=== PATIENT | female | born 1955 | race Caucasian/White ===

== ENCOUNTER 2023-12-07 10:38 | Day surgery (SDC) | payer MEDICARE ==
[2023-12-06 08:48] VITALS: BMI 32.8
[~2023-12-07 10:38] MED LIST: DEXAMETHASONE SOD PHOSPHATE 4 MG/ML 1 ML VIAL IV ONE; HYDROmorphone 0.5 MG/0.5 ML SYRINGE IVP PRN; LIDOCAINE 1% (10MG/ML) FOR IV START INTRADERMA PRN; MIDAZOLAM 2 MG/2 ML VIAL IV PRN
[2023-12-07] MEDS: IV FLUID CONTINUATION 1,000 ML IV ONE (11:01)
[2023-12-07 11:11] VITALS: TEMP 97.3
[2023-12-07] MEDS: ONDANSETRON 4 MG/2 ML VIAL IVP ONE (11:17)
[2023-12-07] MEDS: FAMOTIDINE 20 MG/2 ML VIAL IV PRN (11:17)
[2023-12-07] MEDS: LACTATED RINGERS 1,000 ML IV SCH (11:18)
[2023-12-07] MEDS ORDERED: fentaNYL (PF) 50 MCG/ML 2 ML AMP ONE (12:03)
[2023-12-07] MEDS ORDERED: KETAMINE HCL IN 0.9 % NACL 50 MG/5 ML SYRINGE ONE (12:03)
[2023-12-07] MEDS ORDERED: MIDAZOLAM 2 MG/2 ML VIAL ONE (12:03)
[2023-12-07] MEDS: LIDOCAINE 1%-EPI 1:100,000 20 ML VIAL SQ ONE (12:23)
--- NOTE | 2023-12-07 12:46 | P.OP ---
Date of Procedure: 12/07/23 Preoperative Diagnosis: left temporal skin lesion Postoperative Diagnosis: same Procedure(s) Performed: excision left muslim skin lesion 2.6 cm Local flap reconstruction of left muslim defect with primary defect 2.6 x 1.2 cm and secondary defect2.4 x 1.2 cm Anesthesia: MAC Surgeon: Jeffery Garcia Estimated Blood Loss (ml): 1 Pathology: other (left muslim skin lesion) Condition: stable Disposition: PACU Indications for Procedure: this 68-year-old white female with a left muslim skin lesion. She had proposed excision of this lesion as well as a mid forehead lesion in the office however local anesthesia did not seem to work well for her for the other lesion on the forehead and therefore it was elected to proceed under sedation to excise the left muslim lesion Operative Findings: nodular raised pearly pink skin lesion left temporal Description of Procedure: Patient was brought in the operative suite and positioned supine position. Patient underwent induction of IV sedation after appropriate monitors were placed by the sulfur chloride operator. The medications were administered by sulfur chloride operator also. The patient was then prepped and draped in usual aseptic fashion. 1% lidocaine was infused subcutaneously and field block fashion. The lesion was excised from the surrounding tissue grossly entirely down to the muscular layer the edges of the wound were undermined and hemostasis gained with electrocautery. Due to the location and size of the defect this required a local flap which was a local rotation rhomboid type flap to close the defect. The flap was based laterally and was raised and rotated and advanced into posi tion to close the defect. The primary defect secondary defects were then closed with inverted interrupted 5-0 Vicryl suture in the subcutaneous layer and skin closed with simple interrupted and running locking 5-0 Prolene suture. Bacitracin ointment sterile dressings were placed. The patient was then allowed to emerge from anesthesia having tolerated procedure well was transferred to postop recovery area in satisfactory condition.
[2023-12-07 13:28] VITALS: BP 107/60; PULSE 56; RESP 17
== END 2023-12-07 13:28 | disposition home or self-care (01) ==
LOC: OR 10:38
PROVIDERS: ATTEND Otolaryngology
DX: C44.319 Basal cell carcinoma of skin of other parts of face (principal); L82.1 Other seborrheic keratosis; J45.20 Mild intermittent asthma, uncomplicated; K21.9 Gastro-esophageal reflux disease without esophagitis; E66.9 Obesity, unspecified; Z68.30 Body mass index [BMI] 30.0-30.9, adult; Z80.8 Family history of malignant neoplasm of other organs or systems; Z88.8 Allergy status to other drugs, medicaments and biological substances; Z91.09 Other allergy status, other than to drugs and biological substances; Z87.891 Personal history of nicotine dependence; Z79.51 Long term (current) use of inhaled steroids; Z79.899 Other long term (current) drug therapy
CPT/HCPCS: 88305; 14040; J2250; J0690; J2405; J3010; J3490

== ENCOUNTER 2023-12-13 13:36 | Emergency (ER) | payer MEDICARE ==
[2023-12-13 13:40] VITALS: BP 114/79; PULSE 94; RESP 16; TEMP 97.9
--- NOTE | 2023-12-13 14:53 | ED ---
General Adult HPI - General Chief complaint: ENT Stated complaint: Swelling forehead-Post Surgery Time Seen by Provider: 12/13/23 14:07 Source: patient, RN notes reviewed Mode of arrival: ambulatory Limitations: no limitations - History of Present Illness Initial comments: Patient is a 68-year-old female present to the emergency department with concerns for swelling. Patient did have area of basal cell cancer of her left forehead removed on the skin for 5 days ago. Patient did notice some swelling yesterday, more today. Patient did have some mild discomfort earlier however that has resolved. No redness. No fevers. Patient feels the area itself where the removal was looks fine. Patient states the swelling has bolus, more of the left eyelid - Related Data Home Medications Medication Instructions Recorded Confirmed Acetaminophen Tab [Tylenol Tab] 1,000 mg PO Q6HR PRN 12/06/23 12/07/23 [place] Carbonate 300 mg PO BID 12/06/23 12/07/23 Sertraline [Zoloft] 25 mg PO HS 12/06/23 12/07/23 Allergies Allergy/AdvReac Type Severity Reaction Status Date / Time epinephrine Allergy Severe Verified 12/07/23 11:09 shaking Review of Systems ROS Statement: Those systems with pertinent positive or pertinent negative responses have been documented in the HPI. ROS Other: All systems not noted in ROS Statement are negative. Constitutional: Denies: fever Eyes: Reports: as per HPI. Denies: eye pain ENT: Denies: ear pain Respiratory: Denies: cough, dyspnea Cardiovascular: Denies: chest pain Past Medical History Past Medical History: Asthma, Cancer, GERD/Reflux, Hearing Disorder / Deafness Additional Past Medical History / Comment(s): No recent issues with Asthma. Hx skin cancer on forehead and hand. Some trouble hearing. Legs are bothersome, has difficulty with mobility/walking. 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 Occasional dizziness. History of Any Multi-Drug Resistant Organisms: None Reported Additional Past Surgical History / Comment(s): Skin cancer removed from forehead, scalp cyst removed, mole on face removed. Past Anesthesia/Blood Transfusion Reactions: Previous Problems w/ Anesthesia, Motion Sickness Additional Past Anesthesia/Blood Transfusion Reaction / Comment(s): States Dr Garcia did procedure in his office and he gave her 4X the normal amount of local anesthesia and she was still not totally numbed up. Past Psychological History: Anxiety Smoking Status: Former smoker - Past Family History Sister(s) Family Medical History: Cancer Additional Family Medical History / Comment(s): Melanoma. Father Family Medical History: Cancer Additional Family Medical History / Comment(s): Skin cancer, cancer of cecum. General Exam Limitations: no limitations General appearance: alert, in no apparent distress Head exam: Present: other (Left forehead incision clean dry and intact) Eye exam: Present: normal appearance, PERRL, EOMI, other (Mild swelling part of left upper and lower eyelid without tenderness or erythema) ENT exam: Present: normal exam Neck exam: Present: normal inspection Respiratory exam: Present: normal lung sounds bilaterally Cardiovascular Exam: Present: regular rate, normal rhythm Extremities exam: Present: normal inspection Neurological exam: Present: alert, CN II-XII intact Psychiatric exam: Present: normal affect, normal mood Skin exam: Present: normal color, other (No ecchymosis left eyelid region). Absent: erythema Course Vital Signs 12/13/23 13:36 Temperature 97.9 F Pulse Rate 94 Respiratory 16 Rate Blood Pressure 114/79 O2 Sat by Pulse 99 Oximetry Medical Decision Making - Medical Decision Making Was pt. sent in by a medical professional or institution (, PA, ENVIRONMENTAL SERVICES MANAGER, urgent care, hospital, or snf...) When possible be specific @ -No Did you speak to anyone other than the patient for history (EMS, parent, family, police, friend...)? What history was obtained from this source @ -No Did you review nursing and triage notes (agree or disagree)? Why? @ -I reviewed and agree with nursing and triage notes Were old charts reviewed (outside hosp., previous admission, EMS record, old EKG, old radiological studies, urgent care reports/EKG's, snf records)? Report findings @ -No old charts were reviewed Differential Diagnosis (chest pain, altered mental status, abdominal pain women, abdominal pain men, vaginal bleeding, weakness, fever, dyspnea, syncope, headache, dizziness, GI bleed, back pain, seizure, CVA, palpatations, mental health, musculoskeletal)? @ -Differential Fever: Pneumonia, viral URI, endocarditis, myocarditis, pericarditis, otitis, sinusitis, peritonsillar Abscess, retropharyngeal Abscess, epiglottitis, peritonitis, appendicitis, Claire cystitis, diverticulitis, hepatitis, colitis, UTI, PID, TOA, pyelonephritis, prostatitis, epididymitis, meningitis, encephalitis, pulmonary embolism, CVA, thyroid storm, pancreatitis, adrenal crisis, cavernous sinus thrombosis, this is not meant to be an all-inclusive list. EKG interpreted by me (3pts min.). @ -As above X-rays interpreted by me (1pt min.). @ -None done CT interpreted by me (1pt min.). @ -None done U/S interpreted by me (1pt. min.). @ -None done What testing was considered but not performed or refused? (CT, X-rays, U/S, labs)? Why? @ -None What meds were considered but not given or refused? Why? @ -None Did you discuss the management of the patient with other professionals (professionals i.e. , PA, ENVIRONMENTAL SERVICES MANAGER, lab, RT, psych nurse, social work therapist, plastic parts fabricator, teacher, alumni relations officer, case reviewer)? Give summary @ -No Was smoking cessation discussed for >3mins.? @ -No Was critical care preformed (if so, how long)? @ -No Were there social determinants of health that impacted care today? How? (Homelessness, low income, unemployed, alcoholism, drug addiction, transportation, low edu. Level, literacy, decrease access to med. care, half-way, rehab)? @ -No Was there de-escalation of care discussed even if they declined (Discuss DNR or withdrawal of care, Hospice)? DNR status @ -No What co-morbidities impacted this encounter? (DM, HTN, Smoking, COPD, CAD, Cancer, CVA, ARF, Chemo, Hep., AIDS, mental health diagnosis, sleep apnea, morbid obesity)? @ -Recent skin cancer removal Was patient admitted / discharged? Hospital course, mention meds given and route, prescriptions, significant lab abnormalities, going to OR and other pertinent info. @ -Patient presents with concerns for swelling following removal of skin cancer, inferior to the area. Area consistent with post operative swelling and there is some minimal ecchymosis. No signs of infection. Patient has follow-up in 2 days and agrees to keep this. Patient advised to return if symptoms worsen peer Undiagnosed new problem with uncertain prognosis? @ -No Drug Therapy requiring intensive monitoring for toxicity (Heparin, Nitro, Insulin, Cardizem)? @ -No Were any procedures done? @ -No Diagnosis/symptom? @ -Postoperative swelling Acute, or Chronic, or Acute on Chronic? @ -Acute Uncomplicated (without systemic symptoms) or Complicated (systemic symptoms)? @ -Default Side effects of treatment? @ -No Exacerbation, Progression, or Severe Exacerbation? @ -No Poses a threat to life or bodily function? How? (Chest pain, [place], [place], pneumonia, PE, COPD, DKA, ARF, appy, cholecystitis, CVA, Diverticulitis, Homicidal, Suicidal, threat to staff... and all critical care pts) @ -No Disposition Clinical Impression: Postoperative edema Disposition: HOME SELF-CARE Condition: Stable Instructions (If sedation given, give patient instructions): Acute Wound Care (ED) Additional Instructions: Please follow-up in 2 days for recheck as planned. Return for fever, increased pain, redness, swelling, worsening symptoms or other concerns. Is patient prescribed a controlled substance at d/c from ED?: No Referrals: Bladimir Gomez [Primary Care Provider] - 1-2 days Time of Disposition: 14:53
== END 2023-12-13 15:12 | disposition home or self-care (01) ==
LOC: EC 13:36
DX: L76.82 Other postprocedural complications of skin and subcutaneous tissue (principal); Z87.891 Personal history of nicotine dependence; Z88.8 Allergy status to other drugs, medicaments and biological substances; Z85.828 Personal history of other malignant neoplasm of skin
CPT/HCPCS: 99283

== ENCOUNTER → 2024-06-12 | Outpatient (CLI) | payer MEDICARE ==
--- NOTE | 2024-06-12 12:29 | BD ---
EXAMINATION TYPE: Axial Bone Density DATE OF EXAM: 06/12/2024 CLINICAL HISTORY: 69 years old Female. ICD-10 CODE: Z78.0 ASYMPTOMATIC MENOPAUSAL STATE , Additional History: Height: 5 ft 1 1/2 in Weight: 189 FRAX RISK QUESTIONS: Alcohol (3 or more units per day): no Family History (Parent hip fracture): no Glucocorticoids (More than 3mos): no (Ex: prednisone, prednisolone, methylprednisolone, dexamethasone, and hydrocortisone). History of Fracture in Adulthood: no Secondary Osteoporosis: 1. Type 1 Diabetes: no 2. Hyperthyroidism: no 3. Menopause before 45: no 4. Malnutrition: no 5. Chronic liver disease: no Rheumatoid Arthritis: no Current Tobacco Use: no RISK FACTORS HISTORY OF: Surgery to Spine/Hip(right/left)/Wrist (right/left): no MEDICATIONS: Thyroid Medications: none Osteoporosis Medications: none EXAM MEASUREMENTS: Bone mineral densitometry was performed using the [employer] System. Bone mineral density as measured about the Lumbar spine is: ----- L1-L4(G/cm2): 1.541 T Score Values are as follows: ----- L1: 1.4 ----- L2: 2.0 ----- L3: 4.3 ----- L4: 4.0 ----- L1-L4: 3.0 Z Score Values are as follows: ----- L1: 2.4 ----- L2: 3.0 ----- L3: 5.2 ----- L4: 5.0 ----- L1-L4: 4.0 baseline Bone mineral density about the R hip (g/cm2): 0.914 Bone mineral density about the L hip (g/cm2): 0.888 T Score values are as follows: -----R Neck: -0.9 -----L Neck: -1.1 -----R Total: -0.9 -----L Total: -0.3 Z Score values are as follows: -----R Neck: 0.4 -----L Neck: 0.2 -----R Total: 0.1 -----L Total: 0.7 baseline FRAX%s: The graph provided illustrates a 8.5 % chance for a major osteoporotic fx and a 1.0 % chance for the hips probability for fx in 10 years time. IMPRESSION: Normal (Values between +1 and -1 indicate normal bone mass). Consider repeating this study in 5 year s or sooner if there is some new clinical indication. NOTE: T-SCORE=SD OF THE YOUNG ADULT MEAN. [facility], , 06/12/2024 12:27 PM
== END | disposition home or self-care (01) ==
LOC: RADBDWWP 10:40
PROVIDERS: ATTEND Family Medicine
DX: M85.852 Other specified disorders of bone density and structure, left thigh (principal); Z78.0 Asymptomatic menopausal state
CPT/HCPCS: 77080

== ENCOUNTER 2024-08-04 17:43 | Emergency (ER) | payer MEDICARE ==
[2024-08-04 17:51] VITALS: TEMP 97.9
--- NOTE | 2024-08-04 18:53 | ED ---
Eye Problem HPI - General Chief complaint: Eye Problems Stated complaint: Blood in eye Time Seen by Provider: 08/04/24 18:49 Source: patient, RN notes reviewed Mode of arrival: ambulatory Limitations: no limitations - History of Present Illness Initial comments: 69-year-old female presenting for blood in right eye x 8 hours. States at 11 AM this morning her son noticed that her right eye was red. States before this occurred, she does endorse a transient headache. States she has transient headache since a traumatic brain injury in the early however has never had blood in her eye before. Reports some discomfort when she closes her eye. Denies vision changes, current headache, numbness or tingling of the bilateral lower or upper extremities, slurred speech. Denies history of hypertension. - Related Data Home Medications Medication Instructions Recorded Confirmed Acetaminophen Tab [Tylenol Tab] 1,000 mg PO Q6HR PRN 12/06/23 12/07/23 [place] Carbonate 300 mg PO BID 12/06/23 12/07/23 Sertraline [Zoloft] 25 mg PO HS 12/06/23 12/07/23 Allergies Allergy/AdvReac Type Severity Reaction Status Date / Time epinephrine Allergy Severe Verified 08/04/24 17:50 shaking Review of Systems ROS Statement: Those systems with pertinent positive or pertinent negative responses have been documented in the HPI. ROS Other: All systems not noted in ROS Statement are negative. Past Medical History Past Medical History: Asthma, Cancer, GERD/Reflux, Hearing Disorder / Deafness Additional Past Medical History / Comment(s): No recent issues with Asthma. Hx skin cancer on forehead and hand. Some trouble hearing. Legs are bothersome, has difficulty with mobility/walking. 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 Occasional dizziness. History of Any Multi-Drug Resistant Organisms: None Reported Additional Past Surgical History / Comment(s): Skin cancer removed from forehead, scalp cyst removed, mole on face removed. Past Anesthesia/Blood Transfusion Reactions: Previous Problems w/ Anesthesia, Motion Sickness Additional Past Anesthesia/Blood Transfusion Reaction / Comment(s): States Dr Garcia did procedure in his office and he gave her 4X the normal amount of local anesthesia and she was still not totally numbed up. Past Psychological History: Anxiety Smoking Status: Former smoker - Past Family History Sister(s) Family Medical History: Cancer Additional Family Medical History / Comment(s): Melanoma. Father Family Medical History: Cancer Additional Family Medical History / Comment(s): Skin cancer, cancer of cecum. General Exam Limitations: no limitations General appearance: alert, in no apparent distress Head exam: Present: atraumatic, normocephalic, normal inspection Eye exam: Present: PERRL, EOMI, other (Fluorescein stain negative for uptake, negative for corneal abrasions or ulceration, average IOP right 11). Absent: normal appearance (Right sided subconjunctival erythema with white border consistent with subconjunctival hemorrhage), scleral icterus, conjunctival injection, periorbital swelling Pupils: Present: normal accommodation ENT exam: Present: normal exam, normal oropharynx, mucous membranes moist Neck exam: Present: normal inspection. Absent: tenderness, meningismus, lymphadenopathy Respiratory exam: Present: normal lung sounds bilaterally. Absent: respiratory distress, wheezes, rales, rhonchi, stridor Cardiovascular Exam: Present: regular rate, normal rhythm, normal heart sounds. Absent: systolic murmur, diastolic murmur, rubs, gallop, clicks Neurological exam: Present: alert, oriented X3, CN II-XII intact Psychiatric exam: Present: normal affect, normal mood Skin exam: Present: warm, dry, intact, normal color. Absent: rash Course Vital Signs 08/04/24 08/04/24 08/04/24 17:47 19:00 20:24 Temperature 97.9 F Pulse Rate 72 61 Respiratory 17 18 16 Rate Blood Pressure 176/111 138/97 132/84 O2 Sat by Pulse 99 100 Oximetry 08/04/24 20:31 Temperature Pulse Rate Respiratory 16 Rate Blood Pressure O2 Sat by Pulse Oximetry Medical Decision Making - Medical Decision Making Was pt. sent in by a medical professional or institution (, PA, GEOLOGY TEACHER, urgent care, hospital, or long-term...) When possible be specific @ -No Did you speak to anyone other than the patient for history (EMS, parent, family, police, friend...)? What history was obtained from this source @ -No Did you review nursing and triage notes (agree or disagree)? Why? @ -I reviewed and agree with nursing and triage notes Were old charts reviewed (outside hosp., previous admission, EMS record, old EKG, old radiological studies, urgent care reports/EKG's, long-term records)? Report findings @ -No old charts were reviewed Differential Diagnosis (chest pain, altered mental status, abdominal pain women, abdominal pain men, vaginal bleeding, weakness, fever, dyspnea, syncope, headache, dizziness, GI bleed, back pain, seizure, CVA, palpatations, mental health, musculoskeletal)? @ -Subconjunctival hemorrhage, anterior uveitis, conjunctivitis, corneal ulcer, scleritis EKG interpreted by me (3pts min.). @ -None X-rays interpreted by me (1pt min.). @ -None done CT interpreted by me (1pt min.). @ -CT brain reveals no acute intracranial process U/S interpreted by me (1pt. min.). @ -None done What testing was considered but not performed or refused? (CT, X-rays, U/S, labs)? Why? @ -None What meds were considered but not given or refused? Why? @ -None Did you discuss the management of the patient with other professionals (professionals i.e. , PA, GEOLOGY TEACHER, lab, RT, psych nurse, social science professor, derrick hand, teacher, liaison officer, rn case manager)? Give summary @ -No Was smoking cessation discussed for >3mins.? @ -No Was critical care preformed (if so, how long)? @ -No Were there social determinants of health that impacted care today? How? (Homelessness, low income, unemployed, alcoholism, drug addiction, transportation, low edu. Level, literacy, decrease access to med. care, fpc, rehab)? @ -No Was there de-escalation of care discussed even if they declined (Discuss DNR or withdrawal of care, Hospice)? DNR status @ -No What co-morbidities impacted this encounter? (DM, HTN, Smoking, COPD, CAD, Cancer, CVA, ARF, Chemo, Hep., AIDS, mental health diagnosis, sleep apnea, morbid obesity)? @ -None Was patient admitted / discharged? Hospital course, mention meds given and route, prescriptions, significant lab abnormalities, going to OR and other pertinent info. @ -Discharge. 69-year-old female presenting for blood in right eye x 8 hours. No injury or trauma however does report headache prior to symptom onset. Blood pressure is elevated at 176/101. Neurological examination is unremarkable. There is subconjunctival erythema with white borders present to right eye, fluorescein stain is negative for uptake. Average intraocular pressure 11. CT brain reveals no acute intracranial process. Repeat blood pressure decreases to 138/97. Discussed diagnosis of subconjunctival hemorrhage with patient. Reassured that symptoms will likely resolve on their own. Appropriate return precautions and follow-up care discussed. Case was discussed with my ED attending Dr. Parada. Undiagnosed new problem with uncertain prognosis? @ -No Drug Therapy requiring intensive monitoring for toxicity (Heparin, Nitro, Insulin, Cardizem)? @ -No Were any procedures done? @ -No Diagnosis/symptom? @ -Right subconjunctival hemorrhage Acute, or Chronic, or Acute on Chronic? @ -Acute Uncomplicated (without systemic symptoms) or Complicated (systemic symptoms)? @ -Uncomplicated Side effects of treatment? @ -No Exacerbation, Progression, or Severe Exacerbation? @ -No Poses a threat to life or bodily function? How? (Chest pain, [place], [place], pneumonia, PE, COPD, DKA, ARF, appy, cholecystitis, CVA, Diverticulitis, Homicidal, Suicidal, threat to staff... and all critical care pts) @ -No Disposition Clinical Impression: Subconjunctival hemorrhage of right eye Disposition: HOME SELF-CARE Condition: Stable Instructions (If sedation given, give patient instructions): Subconjunctival Hemorrhage (ED) Additional Instructions: Please return to the Emergency Department if symptoms worsen or any other concerns. Is patient prescribed a controlled substance at d/c from ED?: No Referrals: Bladimir Gomez [Primary Care Provider] - 1-2 days Time of Disposition: 20:27
[2024-08-04] MEDS: hydrALAZINE HCL 50 MG TAB PO STA (18:54)
[2024-08-04] MEDS: PROPARACAINE 0.5% OPHTH DROPS 15 ML BTL RIGHT EYE STA (18:54)
[2024-08-04] MEDS: FLUORESCEIN STRIPS 1 MG STRIP RIGHT EYE ONE (18:54)
--- NOTE | 2024-08-04 19:18 | CT ---
EXAMINATION TYPE: CT brain wo con DATE OF EXAM: 08/04/2024 7:11 PM COMPARISON: None. CLINICAL INDICATION: Female, 69 years old with history of hypertension, headache, headache, htn TECHNIQUE: Brain: Axial CT images of the brain were obtained with coronal and sagittal reformats created and rev iewed. Contrast used: None. Oral contrast used: None. CT DLP: 1156.7 mGycm, Automated exposure control for dose reduction was used. FINDINGS: Brain: Extra-axial spaces: No abnormal extra-axial fluid collections. Ventricular system: Within normal limits Cerebral parenchyma: No acute intraparenchymal hemorrhage or mass effect. The shelby-white junction is well differentiated. Cerebellum: Unremarkable. Mass effect: No evidence of midline shift. Intracranial vasculature: Atherosclerotic calcifications of the intracranial vessels. Soft tissues: Normal. Calvarium/osseous structures: No depressed skull fracture. Paranasal sinuses and mastoid air cells: Mild scattered paranasal sinus disease. Visualized orbits: Orbital contents are intact. IMPRESSION: No acute intracranial process. [facility], , 08/04/2024 7:16 PM
[2024-08-04 20:29] VITALS: BP 132/84; PULSE 61; RESP 16
== END 2024-08-04 20:38 | disposition home or self-care (01) ==
LOC: EC 17:43
DX: H11.31 Conjunctival hemorrhage, right eye (principal); Z88.6 Allergy status to analgesic agent; Z87.891 Personal history of nicotine dependence
CPT/HCPCS: 70450; 99283

== ENCOUNTER → 2024-12-05 | Outpatient (CLI) | payer MEDICARE ==
--- NOTE | 2024-12-05 14:39 | XR ---
EXAMINATION TYPE: XR cervical spine comp DATE OF EXAM: 12/05/2024 1:58 PM COMPARISON: None CLINICAL INDICATION: Female, 69 years old with history of R20.0, R20.2; PHH, pain TECHNIQUE: 5 views FINDINGS: Moderate to advanced facet and uncovertebral joint arthropathy, right greater than left. Moderate deg enerative disc disease C5-C7 levels. Straightening of the normal cervical lordosis. Preserved alignme nt. No predental space widening or prevertebral soft tissue swelling. Normal odontoid view. On the left, there is mild bony neuroforaminal narrowing throughout. On the right, there is more moderate bony neuroforaminal narrowing from C3 through C6 levels. IMPRESSION: 1. Moderate spondylotic change especially mid to lower cervical spine, right greater than left. 2. No prevertebral soft tissue swelling or malalignment. Straightening of the normal cervical lordosi s could be positional or due to muscle spasm. [facility], , 12/05/2024 2:36 PM
== END | disposition home or self-care (01) ==
LOC: RADXRMAIN 13:31
PROVIDERS: ATTEND Family Medicine
DX: M47.812 Spondylosis without myelopathy or radiculopathy, cervical region (principal)
CPT/HCPCS: 72050